=== PATIENT | male | born 2000 | race Caucasian/White ===

== ENCOUNTER 2024-08-08 11:28 | Emergency (ER) | payer SELFPAY ==
[~2024-08-08 11:28] MED LIST: Iopamidol-370 76% 500 ML MDV (1 ML CHARGE) ONE
[2024-08-08 12:35] LABS: #Basophils Less than 0.03 10x3/uL (0.0-0.2); %Basophils 0.4 % (0.0-1.0); %Eosinophils 1.1 % (0.0-10.0); %Lymphocytes 20.8 % (21.0-51.0); %Monocytes 6.3 % (0.0-10.0); Hematocrit 45.4 % (42.0-52.0); Hemoglobin 15.8 g/dL (14.0-18.0); Mean Corpuscular HGB CONC 34.8 g/dL (32.0-36.0); Mean Corpuscular Hemoglobin 30.4 pg (27.0-31.0); Mean Corpuscular Volume 87.3 fL (78.0-98.0); Platelet Count 259 10x3/uL (130-400); RBC Distribution Width 11.9 % (11.5-14.5)
[2024-08-08] MEDS ORDERED: Ketorolac Tromethamine 30 MG (1 mL) VIAL ONE (12:41)
[2024-08-08] MEDS ORDERED: Ondansetron PF 4 MG/2 ML Vial ONE ×2 (12:41→12:42)
[2024-08-08] MEDS ORDERED: Famotidine/PF 20 mg/2ml Vial ONE (12:42)
[2024-08-08 12:50] LABS: ALT (SGPT) 13 U/L (Less than 45); AST (SGOT) 21 U/L (11-34); Albumin 4.7 g/dL (3.1-4.5); Alkaline Phosphatase 57 U/L (40-110); Anion Gap 9 mmol/L (10-20); BUN (Urea Nitrogen) 14 mg/dL (8.9-20.6); Bilirubin, Total 1.2 mg/dL (0.3-1.2); Calc. Creatinine Clearance 0 mL/min (70-130); Calcium 9.6 mg/dL (7.8-10.44); Carbon Dioxide 29 mmol/L (22-29); Chloride 105 mmol/L (98-107); Estimated GFR 121; Globulin 3.1 g/dL (2.4-3.5); Glucose 92 mg/dL (70-105); Lipase 18 U/L (8-78); Potassium 4.3 mmol/L (3.5-5.1); Protein, Total 7.8 g/dL (6.0-8.3); Sodium 139 mmol/L (136-145)
[2024-08-08 12:54] LABS: Troponin I Less than 0.010 ng/mL (< 0.028)
[2024-08-08 13:17] LABS: Bacteria/HPF None Seen HPF (None Seen); Bilirubin Negative (Negative); Blood, Urine Negative (Negative); CAUTI Indications for Culture Acute Hematuria; Clarity Clear (Clear); Glucose, Urine (Dipstick) Normal (Negative); Ketone, Urine Negative (Negative); Leukocyte Negative Leu/uL (Negative); Nitrite Negative (Negative); Protein, Urine (Dipstick) Negative (Neg-Trace); RBC/HPF None Seen HPF (0-3); Squamous Epithelial None Seen HPF (0-3); Urobilinogen Normal mg/dL (Less than 2); WBC/HPF None Seen HPF (0-3)
[2024-08-08 13:18] LABS: Specific Gravity, Urine 1.051 (1.002-1.036)
[2024-08-08 13:19] LABS: Urine Culture Reflex No No
== END 2024-08-08 14:01 | disposition home or self-care (01) ==
LOC: ERS 11:28
DX: R10.12 Left upper quadrant pain (principal); R07.9 Chest pain, unspecified
CPT/HCPCS: 36415; 71045; 74177; 80053; 81001; 83690; 84484; 85025; 93005; 96374; 96375; J1885; J2405; J3490; Q9967